=== PATIENT | female | born 1990 | race Two or more races ===

== ENCOUNTER 2016-10-25 10:51 | Emergency (ER) | payer OTHER ==
[~2016-10-25] VITALS: Ht 157.5 cm; Wt 59.4 kg
[2016-10-25] MEDS ORDERED: ACETAMINOPHEN ES 500 MG TABLET ONE (10:59)
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
[2016-10-25] MEDS: ACETAMINOPHEN ES 500 MG TABLET PO ONE (11:03)
--- NOTE | 2016-10-25 11:10 | NUR ---
PT MEDICATED ORDERED.
[2016-10-25 12:31] VITALS: BP 110/70
--- NOTE | 2016-10-25 12:32 | NUR ---
Patient discharged to home in stable condition. Written and verbal after care instructions given. Patient verbalizes understanding of instruction.
== END 2016-10-25 12:32 | disposition home or self-care (01) ==
LOC: ER 10:53
DX: S20.212A Contusion of left front wall of thorax, initial encounter (principal); V49.40XA Driver injured in collision with unspecified motor vehicles in traffic accident, initial encounter; Y93.89 Activity, other specified; Y92.413 State road as the place of occurrence of the external cause; Y99.8 Other external cause status
CPT/HCPCS: 71010-TC; A4606; Z7610